=== PATIENT | male | born 1945 | race Hispanic/Latino ===

== ENCOUNTER → 2018-11-20 | Outpatient (CLI) | payer OTHER | END | disposition home or self-care (01) | LOC: RAH 13:45 | PROVIDERS: ATTEND Internal Medicine Critical Care Medicine | DX: Z13.6 Encounter for screening for cardiovascular disorders (principal) | CPT/HCPCS: 75571 ==

== ENCOUNTER → 2018-12-25 | Outpatient (CLI) | payer OTHER | END | disposition home or self-care (01) | LOC: RAH 11:23 | PROVIDERS: ATTEND Urology | DX: N20.0 Calculus of kidney (principal); M47.815 Spondylosis without myelopathy or radiculopathy, thoracolumbar region | CPT/HCPCS: 74018; 76100 ==

== ENCOUNTER → 2022-09-03 | Outpatient (CLI) | payer MEDICARE, OTHER | END | disposition home or self-care (01) | LOC: RAH 13:11 | PROVIDERS: ATTEND Internal Medicine Critical Care Medicine | DX: Z13.6 Encounter for screening for cardiovascular disorders (principal) | CPT/HCPCS: 75571 ==

== ENCOUNTER → 2022-10-11 | Outpatient (CLI) | payer MEDICARE | END | disposition home or self-care (01) | LOC: RAH 10:44 | PROVIDERS: ATTEND Urology | DX: N20.0 Calculus of kidney (principal) | CPT/HCPCS: 74018; 76100 ==

== ENCOUNTER → 2024-06-03 | Outpatient (CLI) | payer MEDICARE ==
--- NOTE | 2024-06-03 14:19 | HMCIMG ---
CHEST 1VW HISTORY: Preop COMPARISON: None FINDINGS: A frontal projection of the chest was obtained. No acute pulmonary infiltrates is seen. The heart is normal in size. Prominent interstitial markings are seen. Pacemaker is seen entering from the left. Degenerative changes are seen. No evidence of aortic calcification is seen. IMPRESSION: 1. No acute pulmonary infiltrate is seen.
--- NOTE | 2024-06-03 14:50 | HMCSR ---
APPROVED REPORT EXAM: Two-dimensional and M-mode echocardiogram with Doppler and color Doppler. 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 2D Dimensions RVDd4.3 cmLVEF(%)54.7 (>50%)LVED Vol(simp.)113.0 mL IVSd0.8 (0.7-1.1cm)FS(%)28 %LVES Vol(simp.)65.5 mL LVDd4.6 (3.8-5.6cm)LA (2D)3.5 (1.6-4.0cm)LVEF(%, simp.)53 % PWd1.1 (0.7-1.1cm)Ao Root(2D)3.6 (2.0-3.7cm)LA ESV INDEX (4CH)20.30 mL/m2 IVSs1.2 cmLVOT diam2.2 (1.8-2.4cm)LA ESV INDEX (2CH)30.80 mL/m2 LVDs3.3 (2.5-4.0cm)LA ESV INDEX (BP)26.50 mL/m2 PWs1.5 cm M-Mode Dimensions EPSS0.8 cm LA (MM)4.0 (1.6-4.0cm) Ao Root(MM)3.6 (2.0-3.7cm) Aortic Valve AoV VTI0.3 mAo Mean GR4.0 mmHgLVOT VTI0.16 m ISELA (VMAX)2.5 cm2Al P1/2T638 msAVA (VTI) 2.5 cm2 Mitral Valve MV E Vmax54.8 cm/sDECEL Pwkj406 ms MV A Vmax60.1 cm/sP 1/2 T91 ms E/A ratio0.9MVA (PHT)2.4 cm2 MR Max PG71 mmHg TDI E/E' Xwcjxr26.1E/E' Lateral8.7 Medial E' Peak V3.40 cm/sLateral E' Peak V6.30 cm/s Tricuspid Valve TR Vmax2.4 m/s TR Peak GR23.3 mmHg Left Ventricle The left ventricle is normal size. There is normal LV segmental wall motion. There is normal left nicko tricular wall thickness. LVEF is 50-55%. The left ventricular diastolic function is normal. Right Ventricle The right ventricle is mildly dilated. The right ventricular systolic function is normal. Atria The left atrium size is normal. The right atrium size is normal. Aortic Valve The aortic valve is normal in structure. Trace aortic regurgitation. There is no aortic valvular sten osis. Mitral Valve The mitral valve is normal in structure. Mitral regurgitation is mild. There is no mitral valve steno sis. Tricuspid Valve The tricuspid valve is normal in structure. There is mild tricuspid valve regurgitation noted. Pulmonic Valve The pulmonary valve is normal in structure. There is no pulmonic valvular regurgitation. Great Vessels The aortic root is normal in size. The IVC is normal in size and collapses >50% with inspiration. Pericardium There is no pericardial effusion. Conclusion LVEF is 50-55%. Mitral regurgitation is mild. There is mild tricuspid valve regurgitation noted.
== END | disposition home or self-care (01) ==
LOC: RAH 13:20
PROVIDERS: ATTEND Internal Medicine
DX: Z01.818 Encounter for other preprocedural examination (principal); I08.1 Rheumatic disorders of both mitral and tricuspid valves; M47.814 Spondylosis without myelopathy or radiculopathy, thoracic region; I44.1 Atrioventricular block, second degree; Z95.0 Presence of cardiac pacemaker
CPT/HCPCS: 71045; 93306

== ENCOUNTER → 2024-08-08 | Outpatient (CLI) | payer MEDICARE ==
--- NOTE | 2024-08-08 11:12 | HMCIMG ---
CHEST 2VWS HISTORY: Preop COMPARISON: 06/03/2024 FINDINGS: Frontal and lateral projections of the chest were obtained. There is no acute pulmonary infiltrates or failure. The heart is not enlarged. No evidence of aortic calcification is seen. Degenerative changes are seen of the thoracolumbar spine. Pacemaker is seen entering from the left. IMPRESSION: 1. No acute pulmonary infiltrates.
== END | disposition home or self-care (01) ==
LOC: RAH 10:14
PROVIDERS: ATTEND Internal Medicine
DX: Z01.818 Encounter for other preprocedural examination (principal); I44.1 Atrioventricular block, second degree; M47.815 Spondylosis without myelopathy or radiculopathy, thoracolumbar region
CPT/HCPCS: 71046